=== PATIENT | male | born 1945 | race Caucasian/White ===

== ENCOUNTER 2017-02-04 08:36 | Outpatient (CLI) | payer MEDICARE, OTHER | END 2017-02-04 08:37 | disposition home or self-care (01) | DX: E78.4 Other hyperlipidemia (principal) ==

== ENCOUNTER 2017-03-04 08:09 | Outpatient (CLI) | payer MEDICARE, OTHER | END 2017-03-04 08:10 | disposition home or self-care (01) | DX: M50.30 Other cervical disc degeneration, unspecified cervical region (principal); M47.892 Other spondylosis, cervical region ==

== ENCOUNTER 2017-03-04 09:09 | Outpatient (CLI) | payer MEDICARE, OTHER | END 2017-03-04 09:10 | disposition home or self-care (01) | DX: N18.1 Chronic kidney disease, stage 1 (principal); M54.2 Cervicalgia; R33.9 Retention of urine, unspecified; R39.15 Urgency of urination; R35.1 Nocturia; C61 Malignant neoplasm of prostate ==

== ENCOUNTER 2017-08-13 09:44 | Outpatient (CLI) | payer MEDICARE, OTHER ==
[2017-08-13 10:16] LABS: ALBUMIN/GLOBULIN RATIO 1.7 (1.0-2.2); BILIRUBIN,TOTAL 1.3 mg/dL (0.2-1.0); BUN - BLOOD UREA NITROGEN 15 mg/dL (6-20); CALCIUM 9.2 mg/dL (8.5-10.3); CARBON DIOXIDE - CO2 32 mmol/L (21-32); CHLORIDE 100 mmol/L (101-111); CHOLESTEROL 131 mg/dL; CREATININE 1.1 mg/dL (0.6-1.2); GFR - MDRD 66 (>89); GLUCOSE 93 mg/dL (70-100); HDL CHOLESTEROL 43 mg/dL; LDL/HDL RATIO 1.8 (<3.6); POTASSIUM 4.6 mmol/L (3.5-5.0); SODIUM 137 mmol/L (135-145); TOTAL PROTEIN 7.2 g/dL (6.7-8.2); TRIGLYCERIDES 52 mg/dL; VLDL CHOLESTEROL 10 mg/dL
== END 2017-08-13 09:45 | disposition home or self-care (01) ==
LOC: LAB 09:44
PROVIDERS: ATTEND Internal Medicine
DX: E78.1 Pure hyperglyceridemia (principal); C61 Malignant neoplasm of prostate
CPT/HCPCS: 36415; 80053; 80061; 84153

== ENCOUNTER 2017-12-16 13:26 | Outpatient (CLI) | payer MEDICARE, OTHER | END 2017-12-16 13:27 | disposition home or self-care (01) | LOC: LAB 13:26 | PROVIDERS: ATTEND Physician Assistant | DX: C61 Malignant neoplasm of prostate (principal) | CPT/HCPCS: 36415; 84153 ==

== ENCOUNTER 2018-01-06 08:26 | Outpatient (CLI) | payer MEDICARE, OTHER ==
[2018-01-06 08:54] LABS: CREATININE 1.1 mg/dL (0.6-1.2)
== END 2018-01-06 08:27 | disposition home or self-care (01) ==
LOC: LAB 08:26
PROVIDERS: ATTEND Internal Medicine
DX: E78.4 Other hyperlipidemia (principal); E87.1 Hypo-osmolality and hyponatremia; Z79.899 Other long term (current) drug therapy
CPT/HCPCS: 36415; 80048

== ENCOUNTER 2018-04-07 08:34 | Outpatient (CLI) | payer MEDICARE, OTHER ==
[2018-04-07 09:17] LABS: BUN - BLOOD UREA NITROGEN 17 mg/dL (6-20); CARBON DIOXIDE - CO2 30 mmol/L (21-32); CHLORIDE 101 mmol/L (101-111); CHOL/HDL RATIO 3.1 (<5.0); CHOLESTEROL 115 mg/dL; CREATININE 0.9 mg/dL (0.6-1.2); GFR - MDRD 83 (>89); GLUCOSE 89 mg/dL (70-100); HDL CHOLESTEROL 37 mg/dL; LDL CHOLESTEROL,CALCULATED 69 mg/dL; LDL/HDL RATIO 1.9 (<3.6); SODIUM 138 mmol/L (135-145); VLDL CHOLESTEROL 9 mg/dL
== END 2018-04-07 08:35 | disposition home or self-care (01) ==
LOC: LAB 08:34
PROVIDERS: ATTEND Internal Medicine
DX: E78.4 Other hyperlipidemia (principal); E87.1 Hypo-osmolality and hyponatremia; Z79.899 Other long term (current) drug therapy; R10.9 Unspecified abdominal pain
CPT/HCPCS: 36415; 80048; 80061; 83721; 84443

== ENCOUNTER 2018-05-09 08:00 | Outpatient (CLI) | payer MEDICARE, OTHER ==
[2018-05-09 08:37] LABS: ALBUMIN 3.9 g/dL (3.2-5.5); ALBUMIN/GLOBULIN RATIO 1.3 (1.0-2.2); BILIRUBIN,TOTAL 0.8 mg/dL (0.2-1.0); CALCIUM 8.6 mg/dL (8.5-10.3); TOTAL PROTEIN 6.8 g/dL (6.7-8.2)
== END 2018-05-09 08:01 | disposition home or self-care (01) ==
LOC: LAB 08:00
PROVIDERS: ATTEND Urology
DX: R97.20 Elevated prostate specific antigen [PSA] (principal); E78.4 Other hyperlipidemia
CPT/HCPCS: 36415; 80053; 84153

== ENCOUNTER 2018-05-19 07:26 | Outpatient (CLI) | END 2018-05-19 07:27 | disposition home or self-care (01) ==

== ENCOUNTER 2018-05-21 11:51 | Outpatient (CLI) | payer MEDICARE, OTHER ==
--- NOTE | 2018-05-21 12:14 | XRAY Report ---
Procedure Date: 05/21/2018 Accession Number: [id number] / [id number] Procedure: XR - Knee 3 View RT CPT Code: FULL RESULT: EXAM: Knee 3 View RT DATE: 05/21/2018 12:09 PM CLINICAL HISTORY: ARTHRALGIA COMPARISON: None. TECHNIQUE: 3 views. FINDINGS: Bones: Normal. No fractures or bone lesions. Joints: Normal. No effusion. No subluxations. Soft Tissues: Normal. No soft tissue swelling. IMPRESSION: Normal knee radiography. RADIA
== END 2018-05-21 11:52 | disposition home or self-care (01) ==
LOC: DI 11:51
PROVIDERS: ATTEND Family Medicine
DX: M25.561 Pain in right knee (principal)

== ENCOUNTER 2018-08-21 15:38 | Outpatient (CLI) | payer MEDICARE, OTHER ==
[2018-08-21 16:01] LABS: CREATININE 1.1 mg/dL (0.6-1.2)
== END 2018-08-21 15:39 | disposition home or self-care (01) ==
LOC: LAB 15:38
PROVIDERS: ATTEND Physician Assistant Medical
DX: Z79.899 Other long term (current) drug therapy (principal); B35.1 Tinea unguium
CPT/HCPCS: 36415; 82565; 84450; 84460

== ENCOUNTER 2018-10-10 08:12 | Outpatient (CLI) | payer MEDICARE, OTHER ==
[2018-10-10 09:08] LABS: ALBUMIN 4.2 g/dL (3.2-5.5); ALBUMIN/GLOBULIN RATIO 1.7 (1.0-2.2); ALKALINE PHOSPHATASE 47 IU/L (42-121); ALT ALANINE AMINOTRANSFERASE 26 IU/L (10-60); AST ASPARTATE AMINOTRANSFERASE 35 IU/L (10-42); BILIRUBIN,TOTAL 1.1 mg/dL (0.2-1.0); BUN - BLOOD UREA NITROGEN 10 mg/dL (6-20); CALCIUM 9.1 mg/dL (8.5-10.3); CARBON DIOXIDE - CO2 30 mmol/L (21-32); CHLORIDE 99 mmol/L (101-111); CHOL/HDL RATIO 2.8 (<5.0); CHOLESTEROL 115 mg/dL; CREATININE 0.9 mg/dL (0.6-1.2); GFR - MDRD 83 (>89); GLUCOSE 97 mg/dL (70-100); HDL CHOLESTEROL 41 mg/dL; SODIUM 138 mmol/L (135-145); TOTAL PROTEIN 6.7 g/dL (6.7-8.2)
[2018-10-10 09:55] LABS: LDL CHOLESTEROL,DIRECT 69 mg/dL; LDLD/HDL RATIO 1.7 (<3.6)
== END 2018-10-10 08:13 | disposition home or self-care (01) ==
LOC: LAB 08:12
PROVIDERS: ATTEND Internal Medicine
DX: E78.5 Hyperlipidemia, unspecified (principal); N40.0 Benign prostatic hyperplasia without lower urinary tract symptoms; Z79.899 Other long term (current) drug therapy; N18.3 Chronic kidney disease, stage 3 (moderate)
CPT/HCPCS: 36415; 80053; 80061; 83721; 84153

== ENCOUNTER 2018-10-17 07:24 | Outpatient (CLI) | payer MEDICARE, OTHER | END 2018-10-17 07:25 | disposition home or self-care (01) | LOC: LAB 07:24 | PROVIDERS: ATTEND Physician Assistant Medical | DX: Z79.899 Other long term (current) drug therapy (principal); B35.1 Tinea unguium | CPT/HCPCS: 36415; 82565; 84450; 84460 ==

== ENCOUNTER 2018-11-26 08:02 | Outpatient (CLI) | payer MEDICARE, OTHER | END 2018-11-26 08:03 | disposition home or self-care (01) | LOC: LAB 08:02 | PROVIDERS: ATTEND Urology | DX: C61 Malignant neoplasm of prostate (principal) | CPT/HCPCS: 36415; 84153 ==

== ENCOUNTER 2018-12-23 08:43 | Outpatient (CLI) | payer MEDICARE, OTHER ==
[2018-12-23 09:40] LABS: CREATININE 0.9 mg/dL (0.6-1.2)
== END 2018-12-23 08:44 | disposition home or self-care (01) ==
LOC: LAB 08:43
PROVIDERS: ATTEND Physician Assistant Medical
DX: Z79.899 Other long term (current) drug therapy (principal); B35.1 Tinea unguium
CPT/HCPCS: 36415; 82565; 84450; 84460

== ENCOUNTER 2019-03-23 09:34 | Outpatient (CLI) | payer MEDICARE, OTHER ==
[2019-03-23 09:48] LABS: BASOPHILS % (AUTO) 0.8 %; EOSINOPHILS # (AUTO) 0.2 10^3/uL (0.0-0.7); HGB - HEMOGLOBIN 14.9 g/dL (14.0-18.0); LYMPHOCYTES # (AUTO) 1.2 10^3/uL (1.5-3.5); LYMPHOCYTES % (AUTO) 26.2 %; MEAN CORPUSCULAR HEMOGLOBIN 29.5 pg (27.0-31.0); MEAN CORPUSCULAR VOLUME 89.4 fL (80.0-94.0); MEAN PLATELET VOLUME 7.3 fL (7.4-11.4); MONOCYTES # (AUTO) 0.6 10^3/uL (0.0-1.0); MONOCYTES % (AUTO) 12.6 %; NEUTROPHILS # (AUTO) 2.5 10^3/uL (1.5-6.6); NEUTROPHILS % (AUTO) 55.4 %; PLT - PLATELET COUNT 178 10^3/uL (130-450); RED BLOOD COUNT 5.05 10^6/uL (4.70-6.10); RED CELL DISTRIBUTION WIDTH 13.2 % (12.0-15.0); WHITE BLOOD COUNT 4.5 x10^3/uL (4.8-10.8)
[2019-03-23 09:57] LABS: BILIRUBIN,URINE NEGATIVE (NEGATIVE); GLUCOSE, URINE (UA) NEGATIVE (NEGATIVE); KETONES,URINE (UA) NEGATIVE (NEGATIVE); LEUKOCYTE ESTERASE, URINE NEGATIVE (NEGATIVE); NITRITE,URINE NEGATIVE (NEGATIVE); OCCULT BLOOD,URINE NEGATIVE (NEGATIVE); PH,URINE 6.5 PH (5.0-7.5); PROTEIN,URINE NEGATIVE (NEGATIVE); UROBILINOGEN,URINE 0.2 (NORMAL) E.U./dL (NORMAL)
[2019-03-23 09:58] LABS: CLARITY,URINE CLEAR (CLEAR)
[2019-03-23 10:05] LABS: ALBUMIN 4.1 g/dL (3.2-5.5); ALBUMIN/GLOBULIN RATIO 1.5 (1.0-2.2); ALKALINE PHOSPHATASE 48 IU/L (42-121); ALT ALANINE AMINOTRANSFERASE 30 IU/L (10-60); AST ASPARTATE AMINOTRANSFERASE 35 IU/L (10-42); BILIRUBIN,TOTAL 0.9 mg/dL (0.2-1.0); BUN - BLOOD UREA NITROGEN 15 mg/dL (6-20); CALCIUM 9.1 mg/dL (8.5-10.3); CARBON DIOXIDE - CO2 30 mmol/L (21-32); CHLORIDE 100 mmol/L (101-111); CHOL/HDL RATIO 2.7 (<5.0); CHOLESTEROL 108 mg/dL; GFR - MDRD 74 (>89); GLUCOSE 94 mg/dL (70-100); HDL CHOLESTEROL 40 mg/dL; SODIUM 137 mmol/L (135-145); TOTAL PROTEIN 6.8 g/dL (6.7-8.2)
[2019-03-23 10:33] LABS: LDL CHOLESTEROL,DIRECT 70 mg/dL; LDLD/HDL RATIO 1.8 (<3.6)
== END 2019-03-23 09:35 | disposition home or self-care (01) ==
LOC: LAB 09:34
PROVIDERS: ATTEND Internal Medicine
DX: N18.3 Chronic kidney disease, stage 3 (moderate) (principal); E78.5 Hyperlipidemia, unspecified; R06.83 Snoring; Z79.899 Other long term (current) drug therapy
CPT/HCPCS: 36415; 80053; 80061; 81001; 81003; 83721; 84443; 85025

== ENCOUNTER 2019-04-27 09:46 | Outpatient (CLI) | payer MEDICARE, OTHER | END 2019-04-27 09:47 | disposition home or self-care (01) | LOC: SC 09:46 | PROVIDERS: ATTEND Internal Medicine Pulmonary Disease | DX: G47.10 Hypersomnia, unspecified (principal); G47.8 Other sleep disorders; R06.83 Snoring | CPT/HCPCS: 99203; G0463; 99212 ==

== ENCOUNTER 2019-05-25 08:44 | Outpatient (CLI) | payer MEDICARE, OTHER | END 2019-05-25 08:45 | disposition home or self-care (01) | LOC: LAB 08:44 | PROVIDERS: ATTEND Urology | DX: C61 Malignant neoplasm of prostate (principal) | CPT/HCPCS: 36415; 84153 ==

== ENCOUNTER 2019-05-26 20:15 | Outpatient (CLI) | payer MEDICARE, OTHER | END 2019-05-26 20:16 | disposition home or self-care (01) | LOC: SC 20:15 | PROVIDERS: ATTEND Internal Medicine Pulmonary Disease | DX: G47.61 Periodic limb movement disorder (principal); R00.1 Bradycardia, unspecified | CPT/HCPCS: 95810 ==

== ENCOUNTER 2019-06-08 07:52 | Outpatient (CLI) | payer MEDICARE, OTHER ==
[2019-06-08 08:12] LABS: CALCIUM 9.5 mg/dL (8.5-10.3); CREATININE 0.9 mg/dL (0.6-1.2)
== END 2019-06-08 07:53 | disposition home or self-care (01) ==
LOC: LAB 07:52
PROVIDERS: ATTEND Internal Medicine
DX: N18.3 Chronic kidney disease, stage 3 (moderate) (principal); C61 Malignant neoplasm of prostate; E78.5 Hyperlipidemia, unspecified
CPT/HCPCS: 36415; 80048

== ENCOUNTER 2019-06-15 10:48 | Outpatient (CLI) | payer MEDICARE, OTHER ==
--- NOTE | 2019-06-15 11:14 | CONSULTATION NOTE ---
Information from patient questionnaire entered by Shefali Zaman. I have reviewed and concur with the information entered by Shefali Zaman. This document represents the service I personally performed and the decisions made by me, Da James MD, [facility]. - History of Present Illness HPI: Mr. Kirkland returned for follow up of the sleep study he had on 05/26/19. The polysomnography showed that the patient had slightly reduced sleep efficiency due a few awakenings after the sleep onset. The sleep architecture was relatively normal considering the first-night effect. Respiratory monitoring showed no significant sleep disordered breathing (AHI = 2.6) or hypoxia (roseanna oxygen saturation of 84% but only 1.1% to the total sleep time was spent with oxygen saturation below 90%). The few respiratory events occurred almost exclusively during supine sleep (supine AHI = 6.1; non-supine = 0.50). Snore was moderate in intensity. There was moderate periodic leg movement of sleep not associated with sleep fragmentation. Cardiac rhythm was sinus rhythm with bradycardia. No abnormal behavior (parasomnia) observed during the night. The patient was informed of these findings. I explained to him that moderate periodic leg movement of sleep. He denies having restless leg syndrome. His legs do not bother him. Initial Franklin Sleepiness Scale score: 8 Current Franklin Sleepiness Scale score: 4 - Allergies/Medications Allergies FLU VACCINE Allergy (Severe, Uncoded 04/29/13 09:32) SWELLING/FLU Allergies and home medications reviewed: Yes - Review of Systems Review of systems same as previous: Yes - Impression Periodic leg movement of sleep, moderate, without restless leg syndrome. treatment is not necessary. The cause of periodic leg movement of sleep is typically unknown. Few known causes are iron deficiency, renal failure, and selective serotonin reuptake inhibitors. Iron and ferritin levels are recommended in addition to the routine blood work. - Plan 1. primary care provider to check iron and ferritin levels on routine blood work. 2. Return for follow up on as needed basis. This visit is time-based and I spent 15 minutes with the patient and more than 50% of the time was spent counseling the patient.
== END 2019-06-15 10:49 | disposition home or self-care (01) ==
LOC: SC 10:48
PROVIDERS: ATTEND Internal Medicine Pulmonary Disease
DX: G47.61 Periodic limb movement disorder (principal)
CPT/HCPCS: 99213; G0463; 99212

== ENCOUNTER 2019-12-24 09:37 | Outpatient (CLI) | payer MEDICARE, OTHER | END 2019-12-24 09:38 | disposition home or self-care (01) | LOC: LAB 09:37 | PROVIDERS: ATTEND Urology | DX: C61 Malignant neoplasm of prostate (principal) | CPT/HCPCS: 36415; 84153 ==

== ENCOUNTER 2019-12-29 07:44 | Outpatient (CLI) | payer MEDICARE, OTHER ==
[2019-12-29 08:17] LABS: EOSINOPHILS # (AUTO) 0.2 10^3/uL (0.0-0.7); EOSINOPHILS % (AUTO) 4.3 %; HGB - HEMOGLOBIN 14.5 g/dL (14.0-18.0); LYMPHOCYTES # (AUTO) 1.1 10^3/uL (1.5-3.5); LYMPHOCYTES % (AUTO) 25.3 %; MEAN CORPUSCULAR HEMOGLOBIN 30.5 pg (27.0-31.0); MEAN CORPUSCULAR HGB CONC 33.3 g/dL (32.0-36.0); MEAN CORPUSCULAR VOLUME 91.6 fL (80.0-94.0); MEAN PLATELET VOLUME 8.8 fL (7.4-11.4); MONOCYTES # (AUTO) 0.6 10^3/uL (0.0-1.0); MONOCYTES % (AUTO) 14.8 %; NEUTROPHILS # (AUTO) 2.3 10^3/uL (1.5-6.6); NEUTROPHILS % (AUTO) 54.4 %; PLT - PLATELET COUNT 205 10^3/uL (130-450); RED BLOOD COUNT 4.75 10^6/uL (4.70-6.10); RED CELL DISTRIBUTION WIDTH 12.5 % (12.0-15.0); WHITE BLOOD COUNT 4.2 x10^3/uL (4.8-10.8)
== END 2019-12-29 07:45 | disposition home or self-care (01) ==
LOC: LAB 07:44
PROVIDERS: ATTEND Internal Medicine
DX: N18.3 Chronic kidney disease, stage 3 (moderate) (principal); E78.5 Hyperlipidemia, unspecified; M15.0 Primary generalized (osteo)arthritis; C61 Malignant neoplasm of prostate; Z79.899 Other long term (current) drug therapy; M25.561 Pain in right knee
CPT/HCPCS: 36415; 85025; 85651; 86140

== ENCOUNTER 2019-12-29 08:06 | Outpatient (CLI) | payer MEDICARE, OTHER ==
--- NOTE | 2019-12-29 15:00 | XRAY Report ---
Reason: PAIN IN RIGHT KNEE Procedure Date: 12/29/2019 Accession Number: [id number] Procedure: XR - Knee 3 View RT CPT Code: Final Report FULL RESULT: EXAM: RIGHT KNEE RADIOGRAPHY EXAM DATE: 12/29/2019 08:23 AM. CLINICAL HISTORY: PAIN IN RIGHT KNEE. Possible gout. COMPARISON: KNEE 3 VIEW RT 05/21/2018 11:59 AM. TECHNIQUE: 3 views. FINDINGS: Bones: Normal. No fractures or bone lesions. No erosive changes. Joints: Small effusion. No subluxations. Soft Tissues: Normal. No soft tissue swelling. IMPRESSION: 1. Small right knee joint effusion. RADIA
== END 2019-12-29 08:07 | disposition home or self-care (01) ==
LOC: DI 08:06
PROVIDERS: ATTEND Internal Medicine
DX: M25.461 Effusion, right knee (principal); N18.3 Chronic kidney disease, stage 3 (moderate); E78.5 Hyperlipidemia, unspecified; M15.0 Primary generalized (osteo)arthritis; C61 Malignant neoplasm of prostate; Z79.899 Other long term (current) drug therapy; M25.561 Pain in right knee
CPT/HCPCS: 36415; 85025; 85651; 86140

== ENCOUNTER 2020-08-15 08:07 | Outpatient (CLI) | payer MEDICARE, OTHER ==
[2020-08-15 09:12] LABS: ALBUMIN 4.1 g/dL (3.2-5.5); ALBUMIN/GLOBULIN RATIO 1.5 (1.0-2.2); ALKALINE PHOSPHATASE 48 IU/L (42-121); ALT ALANINE AMINOTRANSFERASE 36 IU/L (10-60); AST ASPARTATE AMINOTRANSFERASE 38 IU/L (10-42); BILIRUBIN,TOTAL 0.9 mg/dL (0.2-1.0); BUN - BLOOD UREA NITROGEN 9 mg/dL (6-20); CALCIUM 9.1 mg/dL (8.5-10.3); CARBON DIOXIDE - CO2 30 mmol/L (21-32); CHLORIDE 97 mmol/L (101-111); CHOL/HDL RATIO 3.1 (<5.0); CHOLESTEROL 129 mg/dL; CREATININE 0.9 mg/dL (0.6-1.2); GLUCOSE 97 mg/dL (70-100); HDL CHOLESTEROL 41 mg/dL; LDL CHOLESTEROL,CALCULATED 75 mg/dL; LDL/HDL RATIO 1.8 (<3.6); SODIUM 134 mmol/L (135-145); TOTAL PROTEIN 6.9 g/dL (6.7-8.2); VLDL CHOLESTEROL 13 mg/dL
== END 2020-08-15 08:08 | disposition home or self-care (01) ==
LOC: LAB 08:07
PROVIDERS: ATTEND Internal Medicine
DX: E78.5 Hyperlipidemia, unspecified (principal); E87.1 Hypo-osmolality and hyponatremia; N18.3 Chronic kidney disease, stage 3 (moderate); Z79.899 Other long term (current) drug therapy
CPT/HCPCS: 36415; 80053; 80061; 83721

== ENCOUNTER 2021-02-14 08:14 | Outpatient (CLI) | payer MEDICARE, OTHER | END 2021-02-14 08:15 | disposition home or self-care (01) | LOC: LAB 08:14 | PROVIDERS: ATTEND Urology | DX: C61 Malignant neoplasm of prostate (principal) | CPT/HCPCS: 36415; 84153 ==

== ENCOUNTER 2021-03-07 09:09 | Outpatient (CLI) | payer MEDICARE, OTHER ==
[2021-03-07 09:25] LABS: BASOPHILS % (AUTO) 0.8 %; EOSINOPHILS # (AUTO) 0.1 10^3/uL (0.0-0.7); EOSINOPHILS % (AUTO) 3.5 %; HCT - HEMATOCRIT 46.7 % (42.0-52.0); HGB - HEMOGLOBIN 15.7 g/dL (14.0-18.0); LYMPHOCYTES # (AUTO) 0.9 10^3/uL (1.5-3.5); LYMPHOCYTES % (AUTO) 25.1 %; MEAN CORPUSCULAR HEMOGLOBIN 30.2 pg (27.0-31.0); MEAN CORPUSCULAR HGB CONC 33.6 g/dL (32.0-36.0); MEAN CORPUSCULAR VOLUME 89.8 fL (80.0-94.0); MEAN PLATELET VOLUME 9.3 fL (7.4-11.4); MONOCYTES # (AUTO) 0.4 10^3/uL (0.0-1.0); MONOCYTES % (AUTO) 11.5 %; NEUTROPHILS # (AUTO) 2.2 10^3/uL (1.5-6.6); NEUTROPHILS % (AUTO) 58.8 %; PLT - PLATELET COUNT 180 10^3/uL (130-450); RED CELL DISTRIBUTION WIDTH 12.4 % (12.0-15.0); WHITE BLOOD COUNT 3.8 x10^3/uL (4.8-10.8)
[2021-03-07 09:45] LABS: ALBUMIN 4.3 g/dL (3.2-5.5); ALBUMIN/GLOBULIN RATIO 1.6 (1.0-2.2); ALKALINE PHOSPHATASE 49 IU/L (42-121); ALT ALANINE AMINOTRANSFERASE 36 IU/L (10-60); AST ASPARTATE AMINOTRANSFERASE 46 IU/L (10-42); BILIRUBIN,TOTAL 1.1 mg/dL (0.2-1.0); BUN - BLOOD UREA NITROGEN 14 mg/dL (6-20); CALCIUM 9.3 mg/dL (8.5-10.3); CARBON DIOXIDE - CO2 28 mmol/L (21-32); CHLORIDE 98 mmol/L (101-111); CHOL/HDL RATIO 2.8 (<5.0); CHOLESTEROL 126 mg/dL; CREATININE 0.9 mg/dL (0.6-1.2); GFR - MDRD 83 (>89); GLUCOSE 94 mg/dL (70-100); HDL CHOLESTEROL 45 mg/dL; POTASSIUM 4.1 mmol/L (3.5-5.0); SODIUM 134 mmol/L (135-145); TRIGLYCERIDES 35 mg/dL
[2021-03-09 09:19] LABS: MAGNESIUM 2.3 mg/dL (1.7-2.8)
== END 2021-03-07 09:10 | disposition home or self-care (01) ==
LOC: LAB 09:09
PROVIDERS: ATTEND Internal Medicine
DX: C61 Malignant neoplasm of prostate (principal); E55.9 Vitamin D deficiency, unspecified; E78.5 Hyperlipidemia, unspecified; Z79.899 Other long term (current) drug therapy; R00.1 Bradycardia, unspecified
CPT/HCPCS: 36415; 80053; 80061; 82306; 83721; 83735; 84153; 84443; 85025

== ENCOUNTER 2021-04-18 07:59 | Outpatient (CLI) | payer MEDICARE, OTHER ==
[2021-04-18 08:27] LABS: BASOPHILS % (AUTO) 0.9 %; EOSINOPHILS # (AUTO) 0.2 10^3/uL (0.0-0.7); EOSINOPHILS % (AUTO) 4.4 %; HGB - HEMOGLOBIN 15.6 g/dL (14.0-18.0); LYMPHOCYTES # (AUTO) 1.2 10^3/uL (1.5-3.5); LYMPHOCYTES % (AUTO) 25.9 %; MEAN CORPUSCULAR HEMOGLOBIN 30.3 pg (27.0-31.0); MEAN CORPUSCULAR HGB CONC 33.2 g/dL (32.0-36.0); MEAN CORPUSCULAR VOLUME 91.3 fL (80.0-94.0); MEAN PLATELET VOLUME 9.2 fL (7.4-11.4); MONOCYTES # (AUTO) 0.5 10^3/uL (0.0-1.0); MONOCYTES % (AUTO) 10.7 %; NEUTROPHILS # (AUTO) 2.7 10^3/uL (1.5-6.6); NEUTROPHILS % (AUTO) 57.9 %; PLT - PLATELET COUNT 190 10^3/uL (130-450); RED BLOOD COUNT 5.15 10^6/uL (4.70-6.10); RED CELL DISTRIBUTION WIDTH 12.7 % (12.0-15.0); WHITE BLOOD COUNT 4.6 x10^3/uL (4.8-10.8)
[2021-04-18 08:35] LABS: ALBUMIN 4.2 g/dL (3.2-5.5); ALBUMIN/GLOBULIN RATIO 1.6 (1.0-2.2); BILIRUBIN,TOTAL 0.7 mg/dL (0.2-1.0); CREATININE 0.9 mg/dL (0.6-1.2); POTASSIUM 4.2 mmol/L (3.5-5.0); TOTAL PROTEIN 6.9 g/dL (6.7-8.2)
== END 2021-04-18 08:00 | disposition home or self-care (01) ==
LOC: LAB 07:59
PROVIDERS: ATTEND Internal Medicine
DX: E55.9 Vitamin D deficiency, unspecified (principal); E78.1 Pure hyperglyceridemia; E21.5 Disorder of parathyroid gland, unspecified; Z79.899 Other long term (current) drug therapy
CPT/HCPCS: 36415; 80053; 85025

== ENCOUNTER 2021-05-05 14:55 | Outpatient (CLI) | payer MEDICARE, OTHER ==
--- NOTE | 2021-05-05 15:39 | XRAY Report ---
PROCEDURE: Ankle 3 View LT INDICATIONS: ACHILLES TENDINITIS TECHNIQUE: 3 views of the ankle were acquired. COMPARISON: None FINDINGS: Bones: No fractures or dislocations. Ankle mortise is normally aligned. No suspicious bony lesions . Small plantar calcaneal enthesophyte is seen. Soft tissues: No tibiotalar joint effusion. Achilles tendon appears mildly thickened near its poste rior calcaneal insertion. IMPRESSION: No ankle fracture or dislocation. Small plantar calcaneal enthesophyte. Questionable thi ckened distal Achilles tendon and may represent Achilles tendinosis. No evidence of Achilles tendon r upture. Reviewed by: Yuan Bui MD on 05/05/2021 3:38 PM PDT Approved by: Yuan Bui MD on 05/05/2021 3:38 PM PDT Station ID: [id number]
--- NOTE | 2021-05-05 16:20 | Ultrasound Report ---
PROCEDURE: Ext Limited Non Vascular INDICATIONS: ACHILLES TENDINITIS TECHNIQUE: Real-time scanning was performed of the Achilles tendon, with image documentation. COMPARISON: None. FINDINGS: There is thickening mid to distal left Achilles tendon measures up to 11.6 mm in AP diameter with het erogeneous internal echotexture and internal hyperreninemia. No full-thickness Achilles tendon ruptur e is seen. IMPRESSION: Finding is consistent with tendinitis and low-grade intrasubstance partial thickness tea r involving mid to distal left Achilles tendon as above. No full-thickness Achilles tendon rupture. C omparison right Achilles tendon is normal in size and echotexture. Reviewed by: Yuan Bui MD on 05/05/2021 4:19 PM PDT Approved by: Yuan Bui MD on 05/05/2021 4:19 PM PDT Station ID: [id number]
== END 2021-05-05 14:56 | disposition home or self-care (01) ==
LOC: DI 14:55
PROVIDERS: ATTEND Internal Medicine
DX: M76.62 Achilles tendinitis, left leg (principal); S86.012A Strain of left Achilles tendon, initial encounter; M77.32 Calcaneal spur, left foot

== ENCOUNTER 2021-08-01 09:58 | Emergency (ER) | payer MEDICARE, OTHER ==
[2021-08-01 10:12] VITALS: BP 115/64
--- NOTE | 2021-08-01 10:12 | ED Physician Documentation ---
History of Present Illness - Stated complaint Stated Complaint: FACE SWELL/BEE STING - History obtained from History obtained from: Patient - Additonal information Additional information: 2 days ago he was stung several times by bees, face, right hand, left leg, left elbow. He is quite itchy and swelling is spreading. No fever, no airway sx. Review of Systems Constitutional: reports: Reviewed and negative Eyes: reports: Reviewed and negative Nose: reports: Reviewed and negative Throat: reports: Reviewed and negative PD PAST MEDICAL HISTORY - Past Medical History Cardiovascular: High cholesterol Respiratory: None Endocrine/Autoimmune: None GI: GERD, Colon polyps : Benign prostate hypertrophy HEENT: Chronic hearing loss Psych: None Musculoskeletal: Osteoarthritis Derm: None - Past Surgical History Past Surgical History: Yes General: Colonoscopy, Other HEENT: Tonsil/Adenoidectomy - Present Medications Home Medications: Ambulatory Orders Medication Instructions Recorded Confirmed Aspirin Chewable [[place] 81 mg PO DAILY 04/29/13 08/01/21 Aspirin] Cholestyramine [Questran] 4 gm PO DAILY 04/29/13 08/01/21 Doxazosin [Cardura] 4 mg PO DAILY 04/29/13 08/01/21 [place]-3 Fatty Acids/Fish Oil [Fish 1 each PO DAILY 04/29/13 08/01/21 Oil 1,000 mg Capsule] Vitamin B Complex 1 each PO DAILY 04/29/13 08/01/21 Doxepin [SINEquan] 10 mg PO TID PRN #30 cap 08/01/21 Finasteride [Proscar] 5 mg PO DAILY 08/01/21 08/01/21 Simvastatin [Zocor] 5 mg PO DAILY 08/01/21 08/01/21 predniSONE [Deltasone] 60 mg PO DAILY 5 Days #15 tablet 08/01/21 - Allergies Allergies/Adverse Reactions: Allergies Allergy/AdvReac Type Severity Reaction Status Date / Time FLU VACCINE Allergy Severe SWELLING/FL Uncoded 08/01/21 10:07 U - Social History Does the pt smoke?: No Smoking Status: Never smoker - Immunizations Immunizations are current?: No - POLST Patient has POLST: No PD ED PE NORMAL - Vitals Vital signs reviewed: Yes - General General: Alert and oriented X 3, No acute distress - HEENT HEENT: PERRL, EOMI, Other (Right side of face is quite swollen but oropharynx is normal) - Neck Neck: Supple, no meningeal sign, No bony TTP - Extremities Extremities: Other (Some swelling about the right wrist, no cellulitis or streaking) - Neuro Neuro: Alert and oriented X 3, Normal speech Results - Vitals Vitals: Vital Signs - 24 hr 08/01/21 10:00 Temperature 37.0 C Heart Rate 58 L Respiratory 16 Rate Blood Pressure 115/64 O2 Saturation 98 Oxygen O2 Source Room air Departure - Departure Disposition: 01 Home, Self Care Clinical Impression: Bee sting reaction Qualifiers: Encounter type: initial encounter Injury intent: accidental or unintentional Qualified Code(s): T63.441A - Toxic effect of venom of bees, accidental (unintentional), initial encounter Condition: Good Record reviewed to determine appropriate education?: Yes Instructions: ED Bite Sting Insect Gen Allergic React Prescriptions: predniSONE [Deltasone] 60 mg PO DAILY 5 Days #15 tablet Doxepin [SINEquan] 10 mg PO TID PRN #30 cap PRN Reason: Itching Comments: Prescription sent electronically to [facility] in [place]. Return if you worsen or develop a fever.
== END 2021-08-01 10:16 | disposition home or self-care (01) ==
LOC: ED 09:58
DX: T63.441A Toxic effect of venom of bees, accidental (unintentional), initial encounter (principal); R22.0 Localized swelling, mass and lump, head; R22.31 Localized swelling, mass and lump, right upper limb; X58.XXXA Exposure to other specified factors, initial encounter; Z79.82 Long term (current) use of aspirin
CPT/HCPCS: 99282; 99284

== ENCOUNTER 2021-09-21 09:20 | Outpatient (CLI) | payer MEDICARE, OTHER | END 2021-09-21 09:21 | disposition home or self-care (01) | LOC: LAB 09:20 | PROVIDERS: ATTEND Urology | DX: C61 Malignant neoplasm of prostate (principal) | CPT/HCPCS: 36415; 84153 ==

== ENCOUNTER 2022-03-14 07:16 | Outpatient (CLI) | payer MEDICARE, OTHER ==
--- NOTE | 2022-03-14 10:39 | MRI Report ---
PROCEDURE: Shoulder LT W/O INDICATIONS: LT SHOULDER PAIN TECHNIQUE: Noncontrast oblique coronal T2 fast spin echo with fat saturation, oblique sagittal T1 spin echo and T2 fast spin echo with fat saturation, axial T1 spin echo and T2 fast spin echo with fat saturation t hrough the shoulder. COMPARISON: None. FINDINGS: Image quality: Excellent. Rotator cuff: Mild supraspinatus and infraspinatus tendinosis with superimposed low-grade bursal surf roxanne fraying but no significant tendon tear. The teres minor and subscapular tendons are intact. No si gnificant rotator cuff muscle atrophy. Bones and bursae: No acute trabecular bone injury. Small chronic traction cystic changes are seen in the posterosuperior humeral head near the rotator cuff tendon insertions. There is mild degenerative spurring in the glenoid rim. Mild to moderate degenerative changes are seen in the acromioclavicular joint with mild subchondral edema and small marginal osteophytes. There is a trace amount of subacro mial/subdeltoid bursal fluid. A physiologic amount of glenohumeral joint fluid is present. Capsule and soft tissues: No acute displaced labral tear is seen. The biceps long head tendon is also seen within the bicipital groove, consistent with complete tearing and distal retraction. Normal fat signal seen in the rotator interval. The glenohumeral ligaments are grossly intact. IMPRESSION: 1.Complete tearing and distal retraction of the proximal biceps long head tendon. 2.Mild supraspinatus and infraspinatus tendinosis with low-grade bursal surface fraying. No significa nt rotator cuff tendon tear. 3.Mild to moderate acromioclavicular osteoarthrosis and mild glenohumeral osteoarthrosis. 4.Trace subacromial/subdeltoid bursal thickening or bursitis. Reviewed by: Dipesh Hudson MD on 03/14/2022 10:38 AM PDT Approved by: Dipesh Hudson MD on 03/14/2022 10:38 AM PDT Station ID: [id number]
== END 2022-03-14 07:17 | disposition home or self-care (01) ==
LOC: DI 07:16
PROVIDERS: ATTEND Internal Medicine
DX: S46.112A Strain of muscle, fascia and tendon of long head of biceps, left arm, initial encounter (principal); M19.012 Primary osteoarthritis, left shoulder; M75.92 Shoulder lesion, unspecified, left shoulder

== ENCOUNTER 2022-03-23 08:46 | Outpatient (CLI) | payer MEDICARE, OTHER | END 2022-03-23 08:47 | disposition home or self-care (01) | LOC: LAB 08:46 | PROVIDERS: ATTEND Urology | DX: C61 Malignant neoplasm of prostate (principal) | CPT/HCPCS: 36415; 84153 ==

== ENCOUNTER 2022-04-03 06:36 | Outpatient (CLI) | payer MEDICARE, OTHER ==
--- NOTE | 2022-04-03 12:46 | Ultrasound Report ---
PROCEDURE: Abdomen Limited INDICATIONS: CHOLESTEROLOSIS OF GALLBLADDER TECHNIQUE: Real-time scanning was performed of the abdominal and retroperitoneal organs, with image documentatio n. COMPARISON: Abdomen ultrasound 08/25/2016 FINDINGS: Liver: Liver is normal in size and homogeneous in echotexture. Previous focus of increased echogeni city within the right liver is not visualized on current exam. Gallbladder: Nonmobile echogenic foci are present the largest measuring 4 mm. Wall thickness is rupal l measuring 2 mm. Biliary ducts: Intrahepatic bile ducts are non-dilated. Extrahepatic bile duct caliber measures 7 m m. Normal is 6-7 mm or less in diameter, or 10 mm or less post-cholecystectomy. Pancreas: Visualized portions of the pancreas demonstrate hypoechoic foci within the pancreatic body measuring 6 x 5 x 5 mm and 9 x 5 x 7 mm.. Kidneys: Right kidney measures 12.1 cm long. No hydronephrosis or nephrolithiasis. No solid masses . Aorta: Visualized aorta is normal in caliber at less than 3 cm. Iliacs: Proximal common iliac arteries are normal in caliber at less than 2.5 cm. IVC: Intrahepatic inferior vena cava is patent. Miscellaneous: No free abdominal fluid. IMPRESSION: Previous presumed hepatic hemangiomas not visualized. Echogenic nonmobile foci within the gallbladder suggestive of polyps. Foci of hypoechogenicity within the pancreas not previously visualized. Both these could represent cy sts, other etiologies cannot be excluded. CT or MRI with pancreatic protocol is recommended. Reviewed by: Pari Brady MD on 04/03/2022 12:45 PM PDT Approved by: Pari Brady MD on 04/03/2022 12:45 PM PDT Station ID: [id number]
== END 2022-04-03 06:37 | disposition home or self-care (01) ==
LOC: DI 06:36
PROVIDERS: ATTEND Internal Medicine
DX: K82.4 Cholesterolosis of gallbladder (principal); R93.3 Abnormal findings on diagnostic imaging of other parts of digestive tract

== ENCOUNTER 2022-05-23 06:43 | Outpatient (CLI) | payer MEDICARE, OTHER ==
[2022-05-23] MEDS ORDERED: GADOBUTROL 10 MMOL/10 ML VIAL ONE (07:22)
--- NOTE | 2022-05-23 14:01 | MRI Report ---
PROCEDURE: Abdomen W/WO INDICATIONS: GALLBLADDER POLYP CONTRAST: IV CONTRAST: Gadavist ml: 9 TECHNIQUE: Coronal ultra fast SE, axial 2D spoiled GE in- and [id number]; axial breath-hold T2 fast SE. Dynam ic axial ultra fast GE during the administration of contrast; post-contrast coronal ultra fast GE or 2D spoiled GE with fat saturation from the hepatic dome to the iliac crests. Optional diffusion weig hted imaging and ADC may be performed. COMPARISON: Abdominal ultrasound 04/03/2022 FINDINGS: Image quality: Excellent. Lung bases: No basal pleural effusions. Heart size is normal. Solid organs: The liver is normal in size and signal with a smooth margin. No lesions. The spleen, a drenal glands, and kidneys are normal. No hydronephrosis. The MR appearance of the gallbladder is normal without wall thickening or dependent stones. A subcent imeter intraluminal foci seen on the ultrasound diagnosis polyps are not well seen on this MR. There are a few submucosal cysts along the posterior gallbladder wall. No other MR evidence of focal adenom yomatosis. The biliary tree is nondilated. The pancreatic duct is nondilated and demonstrates classic anatomy. A n irregular cystic focus measuring 0.7 x 1.0 cm is present in the ventral pancreatic body. A discrete connection to the pancreatic duct cannot be appreciated, but is not excluded by this exam. A second adjacent cyst is not seen. No abnormal enhancement of the pancreas. Nodes and vessels: No retroperitoneal or mesenteric adenopathy by size criteria. Aorta and inferior vena cava are normal in size. Bowel and peritoneum: Unenhanced bowel loops are normal in caliber. No free fluid. Bones and soft tissues: No ventral hernias. Bone marrow is normal in overall signal. IMPRESSION: 1. 1.0 cm pancreatic body cyst. It is uncertain if there is communication to the main pancreatic duct . Differential diagnosis therefore includes IPMN of a sidebranch, serous cystadenoma, less likely pse udocyst or epithelial cyst. Follow-up MRCP/pancreas MR is recommended in 6 months. 2. Gallbladder polyps seen by ultrasound are not well delineated by MR imaging. 3. A few submucosal cystic structures in the gallbladder fossa may be dilated Rokitansky-Aschoff sinu ses. These can be seen in gallbladder adenomyomatosis. Reviewed by: Carmencita Snow MD on 05/23/2022 2:00 PM PDT Approved by: Carmencita Snow MD on 05/23/2022 2:00 PM PDT Station ID: [id number]
[2022-05-23] MEDS ORDERED: GADOBUTROL 10 MMOL/10 ML VIAL IVP ONE (16:26)
== END 2022-05-23 06:44 | disposition home or self-care (01) ==
LOC: DI 06:43
PROVIDERS: ATTEND Internal Medicine
DX: Z01.818 Encounter for other preprocedural examination (principal); K82.4 Cholesterolosis of gallbladder; K86.2 Cyst of pancreas
CPT/HCPCS: 36415; 74183; 82565; A9585

== ENCOUNTER 2022-11-24 08:21 | Outpatient (CLI) | payer MEDICARE, OTHER | END 2022-11-24 08:22 | disposition home or self-care (01) | LOC: LAB 08:21 | PROVIDERS: ATTEND Urology | DX: C61 Malignant neoplasm of prostate (principal) | CPT/HCPCS: 36415; 84153 ==

== ENCOUNTER 2023-04-03 12:06 | Emergency (ER) | payer MEDICARE, OTHER ==
--- NOTE | 2023-04-03 12:53 | XRAY Report ---
PROCEDURE: Chest 2 View X-Ray INDICATIONS: cough for one week. TECHNIQUE: 2 views of the chest were acquired. COMPARISON: None. FINDINGS: Surgical changes and devices: None. Lungs and pleura: No pleural effusions or pneumothorax. Lungs are clear. Mediastinum: Mediastinal contours appear normal. Heart size is normal. Bones and chest wall: No suspicious bony lesions. Overlying soft tissues appear unremarkable. IMPRESSION: No acute cardiopulmonary process. Reviewed by: Mario Brown on 04/03/2023 12:52 PM PDT Approved by: Mario Brown on 04/03/2023 12:52 PM PDT Station ID: [id number]
--- NOTE | 2023-04-03 15:30 | ED Physician Documentation ---
History of Present Illness - Stated complaint Stated Complaint: COUGH,CONGESTION - Chief complaint Chief Complaint: Resp - Additonal information Additional information: 77-year-old male presents emergency department for evaluation of cough, congestion and fever. Reports that his had been sick and about 1 week ago he developed a cough. He initially had some low-grade fevers that dissipated. Patient thought that he was getting better until he began to have a new fever last night up to 101. Reports the cough persisted today. No hemoptysis. He does have some mild congestion. Reports that he takes a 24-hour allergy medicine. No history of smoking or COPD. He is concerned that he is developing pneumonia. Review of Systems Constitutional: reports: Fever Respiratory: reports: Dyspnea, Cough. denies: Wheezing GI: reports: Reviewed and negative : reports: Reviewed and negative Skin: reports: Reviewed and negative Musculoskeletal: reports: Reviewed and negative PD PAST MEDICAL HISTORY - Past Medical History Cardiovascular: High cholesterol Respiratory: None Endocrine/Autoimmune: None GI: GERD, Colon polyps : Benign prostate hypertrophy HEENT: Chronic hearing loss Psych: None Musculoskeletal: Osteoarthritis Derm: None - Past Surgical History Past Surgical History: Yes General: Colonoscopy, Other HEENT: Tonsil/Adenoidectomy - Present Medications Home Medications: Ambulatory Orders Medication Instructions Recorded Confirmed Cholestyramine [Questran] 4 gm PO DAILY 04/29/13 04/03/23 Doxazosin [Cardura] 2 mg PO DAILY 04/29/13 04/03/23 [place]-3 Fatty Acids/Fish Oil [Fish 1 each PO DAILY 04/29/13 04/03/23 Oil 1,000 mg Capsule] Vitamin B Complex 1 each PO DAILY 04/29/13 04/03/23 Doxepin [SINEquan] 10 mg PO TID PRN #30 cap 08/01/21 04/03/23 Finasteride [Proscar] 5 mg PO DAILY 08/01/21 04/03/23 Simvastatin [Zocor] 5 mg PO DAILY 08/01/21 04/03/23 Azithromycin [Zithromax] 0 mg PO DAILY #6 tablet 04/03/23 Cholecalciferol [Vitamin D3] 5,000 unit PO DAILY 04/03/23 04/03/23 Multivitamin 1 each PO DAILY 04/03/23 04/03/23 - Allergies Allergies/Adverse Reactions: Allergies Allergy/AdvReac Type Severity Reaction Status Date / Time FLU VACCINE Allergy Severe SWELLING/FL Uncoded 04/03/23 12:20 U - Social History Does the pt smoke?: No Smoking Status: Never smoker - Immunizations Immunizations are current?: No - POLST Patient has POLST: No PD ED PE NORMAL - General General: Alert and oriented X 3, No acute distress, Well developed/nourished - HEENT HEENT: Atraumatic, Moist mucous membranes, Pharynx benign - Neck Neck: Supple, no meningeal sign, No adenopathy - Cardiac Cardiac: RRR, No murmur - Respiratory Respiratory: No respiratory distress, Clear bilaterally - Abdomen Abdomen: Normal bowel sounds, Soft, Non tender - Back Back: No CVA TTP - Derm Derm: Normal color, Warm and dry, No rash - Extremities Extremities: No deformity, No tenderness to palpate, Normal ROM s pain - Neuro Neuro: Alert and oriented X 3 Eye Opening: Spontaneous Motor: Obeys Commands Verbal: Oriented GCS Score: 15 Results - Vitals Vitals: Vital Signs - 24 hr 04/03/23 12:17 Temperature 36.1 C L Heart Rate 64 Respiratory 14 Rate Blood Pressure 133/68 H O2 Saturation 96 Oxygen O2 Source Room air - Rads (name of study) 2v cxr Relevant Findings:: Final report received (No acute cardiopulmonary process) PD Medical Decision Making - ED course Complexity details: reviewed results, re-evaluated patient, considered differential, d/w patient ED course: 77-year-old male presents emergency department for evaluation of cough, congestion and biphasic fever. Symptoms began about a week ago. [place] that he was getting better until he developed new fever last night. Concerned he could be developing pneumonia. No history of tobacco use or COPD. On exam he appears remarkably well. Unremarkable cardiopulmonary auscultation. No hypoxia on room air. Chest x-ray is interpreted by the radiologist shows no acute focal findings. I discussed with patient that the two-view chest x-ray does not show focal pneumonia but the biphasic fever is concerning for possible subacute bacterial process and as such patient will be started on azithromycin for management of the cough and congestion/bronchitis. He is advised to use Flonase nasal spray as well as Mucinex. The usual emergent return precautions worsening symptoms were discussed Departure - Departure Disposition: 01 Home, Self Care Clinical Impression: Bronchitis Condition: Stable Record reviewed to determine appropriate education?: Yes Instructions: ED Upper Resp Infec Abx Tx Prescriptions: Azithromycin [Zithromax] 0 mg PO DAILY #6 tablet Comments: Lorenzo you are seen today in the emergency department because you have had a cough now for about a week that has failed to improve and you develop new fevers last night. The x-ray of your chest does not show an obvious finding of pneumonia but the new fever is sometimes worrisome and because of this we will start you on a course of antibiotics called azithromycin. This has been sent to the [facility]. You can continue to take your 24-hour allergy pill but I do recommend the use of Flonase nasal spray after shower each day. This will help with some congestion and reduce postnasal drip contributing to the cough. I would also recommend that you take Mucinex [id number] as an expectorant. If you find that the cough is worsening and your fevers do not improve despite the antibiotics and please return to the ER for repeat evaluation
[2023-04-03 15:53] VITALS: BP 127/97
== END 2023-04-03 15:54 | disposition home or self-care (01) ==
LOC: ED 12:06
DX: J40 Bronchitis, not specified as acute or chronic (principal)
CPT/HCPCS: 99283

== ENCOUNTER 2023-05-16 08:31 | Outpatient (CLI) | payer MEDICARE, OTHER ==
[2023-05-16 08:59] LABS: BASOPHILS % (AUTO) 0.7 %; EOSINOPHILS # (AUTO) 0.2 10^3/uL (0.0-0.7); EOSINOPHILS % (AUTO) 4.1 %; HGB - HEMOGLOBIN 14.7 g/dL (14.0-18.0); LYMPHOCYTES % (AUTO) 24.5 %; MEAN CORPUSCULAR HEMOGLOBIN 29.3 pg (27.0-31.0); MEAN CORPUSCULAR HGB CONC 32.7 g/dL (32.0-36.0); MEAN CORPUSCULAR VOLUME 89.6 fL (80.0-94.0); MEAN PLATELET VOLUME 9.2 fL (7.4-11.4); MONOCYTES # (AUTO) 0.5 10^3/uL (0.0-1.0); MONOCYTES % (AUTO) 12.3 %; NEUTROPHILS # (AUTO) 2.4 10^3/uL (1.5-6.6); NEUTROPHILS % (AUTO) 58.2 %; PLT - PLATELET COUNT 174 10^3/uL (130-450); RED BLOOD COUNT 5.02 10^6/uL (4.70-6.10); RED CELL DISTRIBUTION WIDTH 12.7 % (12.0-15.0); WHITE BLOOD COUNT 4.1 x10^3/uL (4.8-10.8)
[2023-05-16 09:18] LABS: ALBUMIN 3.9 g/dL (3.2-5.5); ALBUMIN/GLOBULIN RATIO 1.3 (1.0-2.2); ALKALINE PHOSPHATASE 49 IU/L (42-121); ALT ALANINE AMINOTRANSFERASE 25 IU/L (10-60); AST ASPARTATE AMINOTRANSFERASE 30 IU/L (10-42); BILIRUBIN,TOTAL 0.8 mg/dL (0.2-1.0); BUN - BLOOD UREA NITROGEN 13 mg/dL (6-20); CALCIUM 8.6 mg/dL (8.5-10.3); CARBON DIOXIDE - CO2 31 mmol/L (21-32); CHLORIDE 102 mmol/L (101-111); CHOLESTEROL 122 mg/dL; GFR - MDRD 73 (>89); GLUCOSE 99 mg/dL (70-100); HDL CHOLESTEROL 41 mg/dL; LDL CHOLESTEROL,CALCULATED 72 mg/dL; LDL/HDL RATIO 1.8 (<3.6); MAGNESIUM 2.1 mg/dL (1.7-2.8); POTASSIUM 4.2 mmol/L (3.5-5.0); SODIUM 137 mmol/L (135-145); TOTAL PROTEIN 6.9 g/dL (6.7-8.2); TRIGLYCERIDES 44 mg/dL; VLDL CHOLESTEROL 9 mg/dL
== END 2023-05-16 08:32 | disposition home or self-care (01) ==
LOC: LAB 08:31
PROVIDERS: ATTEND Internal Medicine
DX: C61 Malignant neoplasm of prostate (principal); E78.5 Hyperlipidemia, unspecified; Z79.899 Other long term (current) drug therapy; N18.30 Chronic kidney disease, stage 3 unspecified
CPT/HCPCS: 36415; 80053; 80061; 82306; 83721; 83735; 84153; 84443; 85025

== ENCOUNTER 2023-12-06 09:36 | Outpatient (CLI) | payer MEDICARE, OTHER ==
--- NOTE | 2023-12-07 01:22 | Ultrasound Report ---
PROCEDURE: Arterial Duplex Lwr Ext LT INDICATIONS: PAIN IN LEFT LOWER LEG TECHNIQUE: Color and pulse Doppler interrogation was performed of the left lower extremity arterial system, with image documentation. COMPARISON: None FINDINGS: Common femoral artery: 98 cm/sec, with triphasic flow. Deep femoral artery: 56 cm/sec, with triphasic flow. Proximal superficial femoral artery: 128 cm/sec, with triphasic flow. Mid superficial femoral artery: 98 cm/sec, with triphasic flow. Distal superficial femoral artery: 60 cm/sec, with triphasic flow. Popliteal artery: 96 cm/sec, with triphasic flow. Posterior tibial artery: 87 cm/sec, with biphasic flow. Anterior tibial artery/dorsalis pedis: 82/97 cm/sec, with triphasic/triphasic flow. Mclean-scale imaging description: Minimal scattered chronic disease IMPRESSION: Multiphasic waveforms throughout the left lower extremity arterial vasculature with no velocity shift to suggest a hemodynamically significant stenosis. Reviewed by: Mckay Chase MD on 12/07/2023 1:20 AM PST Approved by: Mckay Chase MD on 12/07/2023 1:20 AM PST Station ID: [id number]
== END 2023-12-06 09:37 | disposition home or self-care (01) ==
LOC: DI 09:36
PROVIDERS: ATTEND Internal Medicine
DX: M79.662 Pain in left lower leg (principal)